=== PATIENT | female | born 1975 | race Caucasian/White ===

== ENCOUNTER 2018-02-09 11:57 | Emergency (ER) | payer MEDICAID, SELFPAY ==
[2018-02-09] MEDS ORDERED: Dexamethasone 10 MG/ML VIAL ONE (12:12)
== END 2018-02-09 13:50 | disposition home or self-care (01) ==
LOC: MADERS 11:57 → EDBD 11:57 → MADERS 13:50
DX: R06.02 Shortness of breath (principal); F17.210 Nicotine dependence, cigarettes, uncomplicated
CPT/HCPCS: 99284; J1100

== ENCOUNTER 2018-03-12 09:12 | Emergency (ER) | payer MEDICAID ==
[2018-03-12] MEDS ORDERED: HYDROcodone/Acetaminophen 5/325 mg Tablet ONE (09:40)
[2018-03-12] MEDS ORDERED: Ibuprofen 800 MG TAB ONE (09:41)
== END 2018-03-12 10:04 | disposition home or self-care (01) ==
LOC: MADERS 09:12
DX: K04.7 Periapical abscess without sinus (principal); F17.210 Nicotine dependence, cigarettes, uncomplicated
CPT/HCPCS: 99282